=== PATIENT | male | born 1955 | race Caucasian/White ===

== ENCOUNTER 2019-12-06 05:29 | Inpatient (IN) ==
[2019-11-29 09:59] LABS: Basophils % 0.4 % (0.0-0.8); Eosinophils % 0.1 % (0.00-10.9); Hematocrit 35.1 VOL% (42.0-52.0); Hemoglobin 10.9 GM/DL (14.0-18.0); Immature Granulocytes % 1.7 %; Immature Granulocytes Absolute 0.13 #; Lymphocytes # 1.6 10*3/uL (1.4-4.0); Lymphocytes % 20.9 % (21.2-54.2); Mean Corpuscular HGB Conc 31.1 GM/DL (32-36); Mean Corpuscular Volume 82.8 FL (87-102); Neutrophils % 66.9 % (38.7-73.9); Platelet Count 177 T/CUMM (130-400); Red Blood Count 4.24 MC/CUMM (3.8-5.5); Red Cell Distribution Width 22.4 % (9.3-17.3); White Blood Count 7.6 T/CUMM (4-12)
[2019-11-29 10:24] LABS: Calcium 8.9 MG/DL (8.5-10.1); Osmolality,Calculated 276.1 MOS/KG (273-304)
[2019-11-29 10:37] LABS: Hypochromasia 1+; Microcytosis 1+
[2019-11-29 10:38] LABS: Ovalocytes Slight
[2019-11-29 10:39] LABS: Anisocytosis 1+; Platelet Estimate Adequate
[2019-12-06] MEDS ORDERED: ALVIMOPAN 12 MG CAPSULE PO ONE (06:00)
[2019-12-06] MEDS ORDERED: ERTAPENEM 1,000 MG in SODIUM CHLORIDE 0.9% 100 ML IV ONE (06:00)
[2019-12-06] MEDS ORDERED: ACETAMINOPHEN 500 MG TABLET ONE (06:19)
[2019-12-06] MEDS ORDERED: ALVIMOPAN 12 MG CAPSULE ONE (06:19)
[2019-12-06] MEDS ORDERED: FAMOTIDINE 20 MG TABLET ONE (06:19)
[2019-12-06] MEDS ORDERED: ERTAPENEM 1,000 MG VIAL ONE (06:19)
[2019-12-06] MEDS ORDERED: GABAPENTIN 400 MG CAPSULE ONE (06:19)
[2019-12-06] MEDS ORDERED: INDOCYANINE GREEN 25 MG VIAL IV ONE (06:23)
[2019-12-06] MEDS ORDERED: TISSUE ADHESIVE 1 EACH APPLICATOR TOP ONE (06:23)
[2019-12-06] MEDS ORDERED: BUPIVACAINE MPF 0.5% /EPI 30 ML VIAL ONE (06:30)
[2019-12-06] MEDS ORDERED: ACETAMINOPHEN 500 MG TABLET PO ONE (06:44)
[2019-12-06] MEDS ORDERED: GABAPENTIN 400 MG CAPSULE PO ONE (06:44)
[2019-12-06] MEDS ORDERED: FAMOTIDINE 20 MG TABLET PO ONE (06:44)
[2019-12-06] MEDS ORDERED: BUPIVACAINE MPF 0.25% 30 ML VIAL ONE (06:52)
[2019-12-06] MEDS ORDERED: LACTATED RINGERS 1,000 ML IV SCH (07:00)
[2019-12-06] MEDS ORDERED: SEVOFLURANE 1 UNIT/15 MINUTE INH ONE (10:44)
[2019-12-06] MEDS ORDERED: fentaNYL 100 MCG/2 ML VIAL ONE (10:44)
[2019-12-06] MEDS ORDERED: ACETAMINOPHEN 1,000 MG/100 ML VIAL IV ONE (10:44)
[2019-12-06] MEDS ORDERED: GLYCOPYRROLATE 0.4 MG/2 ML VIAL ONE (10:44)
[2019-12-06] MEDS ORDERED: MIDAZOLAM 2 MG/2 ML VIAL ONE (10:44)
[2019-12-06] MEDS ORDERED: ePHEDrine 50 MG/ML AMP ONE (10:44)
[2019-12-06] MEDS ORDERED: ONDANSETRON 4 MG/2 ML VIAL ONE (10:44)
[2019-12-06] MEDS ORDERED: propofoL 200 MG/20 ML VIAL IV ONE (10:44)
[2019-12-06] MEDS ORDERED: PHENYLEPHRINE 10 MG/1 ML VIAL IV ONE (10:44)
[2019-12-06] MEDS ORDERED: SODIUM CHLORIDE 0.9% 100 ML IV ONE (10:45)
[2019-12-06] MEDS ORDERED: LACTATED RINGERS 1,000 ML IV ONE (10:45)
[2019-12-06] MEDS ORDERED: NEOSTIGMINE 10 MG/10 ML VIAL ONE (10:45)
[2019-12-06] MEDS ORDERED: SUCCINYLCHOLINE 200 MG/10 ML VIAL ONE (10:45)
[2019-12-06] MEDS ORDERED: ROCURONIUM 100 MG/10 ML VIAL IV ONE (10:45)
[2019-12-06 10:58] LABS: Basophils % 0.2 % (0.0-0.8); Eosinophils % 0.1 % (0.00-10.9); Hematocrit 36.3 VOL% (42.0-52.0); Hemoglobin 10.8 GM/DL (14.0-18.0); Immature Granulocytes % 2.9 %; Immature Granulocytes Absolute 0.25 #; Lymphocytes % 11.4 % (21.2-54.2); Mean Corpuscular HGB Conc 29.8 GM/DL (32-36); Mean Corpuscular Volume 85.8 FL (87-102); Mean Platelet Volume 10.1 FL (9.6-12.0); Monocytes % 5.1 % (1.7-12.7); Neutrophils % 80.3 % (38.7-73.9); Platelet Count 154 T/CUMM (130-400); Red Blood Count 4.23 MC/CUMM (3.8-5.5); Red Cell Distribution Width 21.8 % (9.3-17.3); White Blood Count 8.8 T/CUMM (4-12)
[2019-12-06 11:17] LABS: Calcium 8.1 MG/DL (8.5-10.1); Osmolality,Calculated 279.1 MOS/KG (273-304)
[2019-12-06] MEDS: HYDROmorphone 2 MG/1 ML VIAL IV PRN ×2 (12:02→23:52)
[2019-12-06] MEDS: LACTATED RINGERS 1,000 ML IV SCH ×2 (12:28→22:08)
[2019-12-06] MEDS: KETOROLAC 30 MG/1 ML VIAL IV SCH ×2 (15:33→20:19)
[2019-12-06] MEDS: ALVIMOPAN 12 MG CAPSULE PO SCH (20:26)
[2019-12-06] MEDS ORDERED: SIMVASTATIN 10 MG TABLET PO SCH (21:00)
[2019-12-07] MEDS: KETOROLAC 30 MG/1 ML VIAL IV SCH ×2 (03:29→09:55)
[2019-12-07] MEDS ORDERED: PANTOPRAZOLE 40 MG TABLET PO SCH (06:30)
[2019-12-07 06:45] LABS: Basophils % 0.1 % (0.0-0.8); Eosinophils % 0.1 % (0.00-10.9); Hematocrit 32.4 VOL% (42.0-52.0); Hemoglobin 9.5 GM/DL (14.0-18.0); Immature Granulocytes % 2.5 %; Immature Granulocytes Absolute 0.39 #; Lymphocytes # 1.2 10*3/uL (1.4-4.0); Lymphocytes % 7.3 % (21.2-54.2); Mean Corpuscular HGB Conc 29.3 GM/DL (32-36); Mean Corpuscular Volume 86.4 FL (87-102); Mean Platelet Volume 10.8 FL (9.6-12.0); Monocytes % 12.3 % (1.7-12.7); Neutrophils % 77.7 % (38.7-73.9); Platelet Count 150 T/CUMM (130-400); Red Blood Count 3.75 MC/CUMM (3.8-5.5); Red Cell Distribution Width 22.3 % (9.3-17.3); White Blood Count 15.7 T/CUMM (4-12)
[2019-12-07 07:02] LABS: Calcium 8.3 MG/DL (8.5-10.1); Osmolality,Calculated 277.2 MOS/KG (273-304)
[2019-12-07 07:04] LABS: Hypochromasia 1+; Lymphocytes 7 % (20-55); Ovalocytes Slight; Platelet Estimate Normal; Segmented Neutrophils 79 % (50-85); Total Cells Counted 100
[2019-12-07] MEDS ORDERED: DOCUSATE SODIUM 100 MG CAPSULE PO SCH (09:00)
[2019-12-07] MEDS ORDERED: CYANOCOBALAMIN 500 MCG TABLET PO SCH (09:00)
[2019-12-07] MEDS ORDERED: ENOXAPARIN 40 MG/0.4 ML SYRINGE SUBCUT SCH (09:00)
[2019-12-07] MEDS ORDERED: ZINC GLUCONATE 50 MG TABLET PO SCH (09:00)
[2019-12-07] MEDS ORDERED: CHOLECALCIFEROL 5,000 UNIT TABLET PO SCH (09:00)
[2019-12-07] MEDS ORDERED: MAGNESIUM OXIDE 400 MG TABLET PO SCH (09:00)
[2019-12-07] MEDS: ALVIMOPAN 12 MG CAPSULE PO SCH (09:54)
[2019-12-07 11:52] VITALS: BP 115/60
[2019-12-07 11:52] LABS: Hematocrit 31.2 VOL% (42.0-52.0); Hemoglobin 9.2 GM/DL (14.0-18.0)
[2019-12-07 12:09] LABS: Calcium 8.3 MG/DL (8.5-10.1); Osmolality,Calculated 274.5 MOS/KG (273-304)
== END 2019-12-07 14:54 | disposition home or self-care (01) | DRG 331 ==
LOC: N.SDSINP 05:29 → N.OR 05:29 → N.SDSINP 05:30 → EDSTATUS 07:30 → EDSDCBED 09:49 → N.3E 09:49 → N.SDSINP 09:49 → N.OR 12-07 14:54 → UNDODEPSDC 12-12 12:31
PROVIDERS: ADMIT Surgery; ATTEND Surgery

== ENCOUNTER 2019-12-07 22:21 | Observation (INO) ==
[2019-12-07] MEDS ORDERED: MEPERIDINE 50 MG/1 ML VIAL IV STA (23:42)
[2019-12-07 23:44] LABS: Basophils % 0.2 % (0.0-0.8); Eosinophils % 0.3 % (0.00-10.9); Hematocrit 31.1 VOL% (42.0-52.0); Hemoglobin 9.3 GM/DL (14.0-18.0); Immature Granulocytes % 2.8 %; Immature Granulocytes Absolute 0.32 #; Lymphocytes # 0.9 10*3/uL (1.4-4.0); Lymphocytes % 7.4 % (21.2-54.2); Mean Corpuscular HGB Conc 29.9 GM/DL (32-36); Mean Corpuscular Volume 85.7 FL (87-102); Mean Platelet Volume 11.2 FL (9.6-12.0); Monocytes % 10.2 % (1.7-12.7); Neutrophils % 79.1 % (38.7-73.9); Platelet Count 144 T/CUMM (130-400); Red Blood Count 3.63 MC/CUMM (3.8-5.5); White Blood Count 11.5 T/CUMM (4-12)
[2019-12-08] MEDS ORDERED: MEPERIDINE 25 MG/1 ML VIAL ONE (00:03)
[2019-12-08 00:29] LABS: Albumin 3.1 G/DL (3.4-5.0); Bilirubin,Total 0.6 MG/DL (0.2-1.0); Calcium 8.7 MG/DL (8.5-10.1); Osmolality,Calculated 277.5 MOS/KG (273-304); Total Protein 7.1 G/DL (6.4-8.3)
[2019-12-08] MEDS ORDERED: PANTOPRAZOLE INJ 80 MG in SODIUM CHLORIDE 0.9% 100 ML IV ONE (00:55)
[2019-12-08] MEDS ORDERED: PANTOPRAZOLE INJ 200 MG in SODIUM CHLORIDE 0.9% 250 ML IV SCH (01:00)
[2019-12-08] MEDS ORDERED: ONDANSETRON 4 MG/2 ML VIAL IV PRN (01:14)
[2019-12-08] MEDS ORDERED: DEXTROSE 5% NACL 0.45% 1,000 ML IV SCH (01:30)
[2019-12-08] MEDS: SODIUM CHLORIDE 0.9% 1,000 ML IV SCH ×2 (03:02→17:19)
[2019-12-08] MEDS: PANTOPRAZOLE INJ 200 MG in SODIUM CHLORIDE 0.9% 250 ML IV SCH (04:30)
[2019-12-08 07:00] LABS: Basophils % 0.2 % (0.0-0.8); Eosinophils % 0.4 % (0.00-10.9); Hemoglobin 8.1 GM/DL (14.0-18.0); Immature Granulocytes % 1.9 %; Immature Granulocytes Absolute 0.19 #; Lymphocytes # 1.3 10*3/uL (1.4-4.0); Lymphocytes % 12.3 % (21.2-54.2); Mean Corpuscular HGB Conc 31.2 GM/DL (32-36); Mean Corpuscular Volume 83.6 FL (87-102); Mean Platelet Volume 10.4 FL (9.6-12.0); Monocytes % 11.5 % (1.7-12.7); Neutrophils % 73.7 % (38.7-73.9); Platelet Count 125 T/CUMM (130-400); Red Blood Count 3.11 MC/CUMM (3.8-5.5); White Blood Count 10.2 T/CUMM (4-12)
[2019-12-08 07:20] LABS: Hypochromasia 1+; Microcytosis 1+; Ovalocytes Slight; Platelet Estimate Adequate; Spherocytes Slight
[2019-12-08] MEDS ORDERED: GLUCAGON 1 MG VIAL IM PRN (07:22)
[2019-12-08] MEDS ORDERED: DEXTROSE 10% 250 ML BAG IV PRN (07:22)
[2019-12-08 07:28] LABS: Calcium 8.4 MG/DL (8.5-10.1)
[2019-12-08] MEDS: INSULIN REGULAR 100 UNIT/ML SUBCUT SCH ×3 (08:20→17:20)
[2019-12-08 12:37] LABS: Hematocrit 27.8 VOL% (42.0-52.0); Hemoglobin 8.5 GM/DL (14.0-18.0)
[2019-12-08 15:31] VITALS: BP 118/56
[2019-12-16] MEDS: PANTOPRAZOLE INJ 200 MG in SODIUM CHLORIDE 0.9% 250 ML IV SCH (15:59)
== END 2019-12-08 17:28 | disposition home or self-care (01) ==
LOC: N.ED 22:21 → N.EDINP 22:21 → N.TELEN 12-08 01:57
PROVIDERS: ADMIT Surgery; ATTEND Surgery

== ENCOUNTER 2019-12-25 00:18 | Observation (INO) ==
[2019-12-25 01:35] LABS: Basophils % 0.3 % (0.0-0.8); Eosinophils % 0.3 % (0.00-10.9); Hematocrit 31.1 VOL% (42.0-52.0); Hemoglobin 9.4 GM/DL (14.0-18.0); Immature Granulocytes % 2.6 %; Lymphocytes # 1.4 10*3/uL (1.4-4.0); Lymphocytes % 12.4 % (21.2-54.2); Mean Corpuscular HGB Conc 30.2 GM/DL (32-36); Mean Corpuscular Volume 83.2 FL (87-102); Mean Platelet Volume 9.7 FL (9.6-12.0); Monocytes % 16.8 % (1.7-12.7); Neutrophils % 67.6 % (38.7-73.9); Platelet Count 371 T/CUMM (130-400); Red Blood Count 3.74 MC/CUMM (3.8-5.5); Red Cell Distribution Width 19.3 % (9.3-17.3); White Blood Count 11.6 T/CUMM (4-12)
[2019-12-25 01:48] LABS: Calcium 8.5 MG/DL (8.5-10.1); Osmolality,Calculated 268.5 MOS/KG (273-304)
[2019-12-25 02:49] LABS: Sedimentation Rate-Westergren 111 MM/HR (0-20)
[2019-12-25] MEDS ORDERED: VANCOMYCIN INJ 1,500 MG in SODIUM CHLORIDE 0.9% 500 ML IV STA (03:33)
[2019-12-25] MEDS ORDERED: PIPERACILLIN/TAZOBACTAM 3,375 MG in SODIUM CHLORIDE 0.9% 100 ML IV STA (03:33)
[2019-12-25] MEDS ORDERED: GLUCAGON 1 MG VIAL IM PRN (03:44)
[2019-12-25] MEDS ORDERED: DEXTROSE 50% 25 GM/50 ML SYRINGE IV PRN (03:44)
[2019-12-25] MEDS ORDERED: VANCOMYCIN INJ 2,000 MG in SODIUM CHLORIDE 0.9% 500 ML IV STA (03:44)
[2019-12-25 04:25] LABS: Lymphocytes 19 % (20-55); Segmented Neutrophils 69 % (50-85); Total Cells Counted 100
[2019-12-25 04:26] LABS: Anisocytosis 1+; Atypical Lymphocytes Few; Hypochromasia 1+; Platelet Estimate Adequate
[2019-12-25 04:39] LABS: PT Patient Result 11.2 SECS (9.6-12.2); Partial Thromboplastin Time 32.9 SECS (20.8-36.0)
[2019-12-25] MEDS ORDERED: ceFAZolin 1,000 MG in SYRINGE 1 EACH IV ONE (08:54)
[2019-12-25] MEDS ORDERED: ONDANSETRON 4 MG/2 ML VIAL IV PRN (08:57)
[2019-12-25] MEDS ORDERED: ACETAMINOPHEN 325 MG TABLET PO PRN (08:57)
[2019-12-25] MEDS ORDERED: HYDROmorphone 2 MG/1 ML VIAL IV PRN (08:58)
[2019-12-25] MEDS ORDERED: ceFAZolin 1,000 MG VIAL ONE (10:56)
[2019-12-25] MEDS ORDERED: BUPIVACAINE MPF 0.25% 30 ML VIAL ONE (10:56)
[2019-12-25] MEDS ORDERED: LIDOCAINE 1%/EPI INJ 20 ML VIAL ONE (10:56)
[2019-12-25] MEDS ORDERED: propofoL 200 MG/20 ML VIAL IV ONE (12:15)
[2019-12-25] MEDS ORDERED: LIDOCAINE 2% 5 ML VIAL ONE (12:15)
[2019-12-25] MEDS ORDERED: fentaNYL 100 MCG/2 ML VIAL ONE (12:16)
[2019-12-25] MEDS ORDERED: NEOSTIGMINE 10 MG/10 ML VIAL ONE (12:16)
[2019-12-25] MEDS ORDERED: GLYCOPYRROLATE 0.4 MG/2 ML VIAL ONE (12:16)
[2019-12-25] MEDS ORDERED: ONDANSETRON 4 MG/2 ML VIAL ONE (12:16)
[2019-12-25] MEDS ORDERED: MIDAZOLAM 2 MG/2 ML VIAL ONE (12:16)
[2019-12-25] MEDS ORDERED: PHENYLEPHRINE 1 MG/10 ML SYRINGE IV ONE (12:16)
[2019-12-25] MEDS ORDERED: ROCURONIUM 100 MG/10 ML VIAL IV ONE (12:16)
[2019-12-25] MEDS: INSULIN REGULAR 100 UNIT/ML SUBCUT SCH ×5 (16:55→21:21)
[2019-12-25] MEDS: PIPERACILLIN/TAZOBACTAM 3,375 MG in SODIUM CHLORIDE 0.9% 100 ML IV SCH ×2 (16:56→20:00)
[2019-12-25] MEDS: VANCOMYCIN INJ 2,000 MG in SODIUM CHLORIDE 0.9% 500 ML IV SCH (17:13)
[2019-12-25] MEDS ORDERED: SIMVASTATIN 10 MG TABLET PO SCH (21:00)
[2019-12-25] MEDS ORDERED: lisinopriL 10 MG TABLET PO SCH (21:00)
[2019-12-26] MEDS: PIPERACILLIN/TAZOBACTAM 3,375 MG in SODIUM CHLORIDE 0.9% 100 ML IV SCH ×2 (03:17→12:00)
[2019-12-26] MEDS: VANCOMYCIN INJ 2,000 MG in SODIUM CHLORIDE 0.9% 500 ML IV SCH ×3 (06:42→09:33)
[2019-12-26] MEDS: INSULIN REGULAR 100 UNIT/ML SUBCUT SCH ×2 (09:31→13:16)
[2019-12-26 12:01] VITALS: BP 124/59
== END 2019-12-26 14:53 | disposition home health service (06) ==
LOC: N.EDINP 00:18 → N.ED 00:18 → N.3E 05:06
PROVIDERS: ADMIT Student in an Organized Health Care Education/Training Program; ATTEND Student in an Organized Health Care Education/Training Program